=== PATIENT | female | born 1980 | race Caucasian/White ===

== ENCOUNTER 2025-01-26 19:55 | Observation (INO) ==
[2025-01-26] MEDS ORDERED: IOPAMIDOL 100 ML BOTTLE IV ONE (19:56)
[2025-01-26 20:28] LABS: Basophils # (Auto) 0.04 K/mcL (0.00-0.30); Basophils % (Auto) 0.3 % (0.0-2.0); Eosinophils # (Auto) 0.18 K/mcL (0.00-0.70); Eosinophils % (Auto) 1.6 % (0.0-7.0); Hemoglobin 12.7 g/dL (11.2-15.7); Lymphocytes # (Auto) 1.69 K/mcL (1.50-4.80); Lymphocytes % (Auto) 14.6 % (15.5-49.0); Mean Cell Volume 90.5 fL (80.0-100.0); Mean Corpuscular HGB Conc 32.6 g/dL (31.0-36.0); Monocytes # (Auto) 0.73 K/mcL (0.10-0.90); Monocytes % (Auto) 6.3 % (1.0-12.0); Platelet Count 321 K/mcL (140-440); RBC 4.31 M/mcL (3.59-5.38); Red Cell Distribution Width 12.7 % (11.5-14.5); WBC 11.6 K/mcL (4.5-11.0)
[2025-01-26 20:38] LABS: HCG,Serum Negative
[2025-01-26 20:49] LABS: ALT/SGPT 26 U/L (<40); AST/SGOT 23 U/L (<32); Albumin 4.3 gm/dL (3.2-5.2); Albumin/Globulin Ratio 1.8 (1.0-2.3); Alkaline Phosphatase 87 U/L (39-117); Bilirubin,Total 0.3 mg/dL (0.1-1.0); Blood Urea Nitrogen 8 mg/dL (6-20); Calcium 9.4 mg/dL (8.6-10.4); Carbon Dioxide 26 mmol/L (22-30); Chloride 102 mmol/L (96-108); Globulin 2.4 gm/dL (2.2-3.7); Glomerular Filtration Rate 112; Glucose 107 mg/dL (70-105); Potassium 3.8 mmol/L (3.3-5.1); Sodium 140 mmol/L (133-145)
[2025-01-26] MEDS: KETOROLAC 15 MG/ML VIAL IV ONE ×2 (21:15→22:58)
[2025-01-26] MEDS: ONDANSETRON 4 MG/2 ML VIAL IV ONE (21:15)
[2025-01-26 22:23] LABS: Appearance,Urine Clear (Clear); Bacteria,Urine Few /hpf (0); Bilirubin,Urine Negative (Negative); Color,Urine Yellow; Glucose,Urine (UA) Negative (Negative); Ketones,Urine Trace mg/dL (Negative); Leukocyte Esterase,Urine Negative /uL (Negative); Mucus,Urine Many /hpf; Nitrate,Urine Negative (Negative); Protein,Urine Negative (Negative); Specific Gravity,Urine 1.025 (1.000-1.035); Urine Blood Negative ery/mcL (Negative); Urine RBC < 1 /hpf (0-3); Urine Squamous Epithelial Cell 2 /hpf (0-4); Urine WBC 2 /hpf (0-4); Urobilinogen,Urine Normal
[2025-01-27] MEDS: cefOXitin 2 GM VIAL IV ONE (02:20)
[2025-01-27 05:09] LABS: Basophils # (Auto) 0.03 K/mcL (0.00-0.30); Basophils % (Auto) 0.3 % (0.0-2.0); Eosinophils # (Auto) 0.06 K/mcL (0.00-0.70); Eosinophils % (Auto) 0.5 % (0.0-7.0); Hematocrit 35.3 % (34.1-44.9); Hemoglobin 11.9 g/dL (11.2-15.7); Lymphocytes # (Auto) 1.51 K/mcL (1.50-4.80); Mean Cell Volume 89.6 fL (80.0-100.0); Mean Corpuscular HGB Conc 33.7 g/dL (31.0-36.0); Mean Platelet Volume 8.9 fL (8.8-12.5); Monocytes # (Auto) 0.81 K/mcL (0.10-0.90); Monocytes % (Auto) 6.9 % (1.0-12.0); Neutrophils % (Auto) 79.2 % (38.0-78.0); Platelet Count 286 K/mcL (140-440); RBC 3.94 M/mcL (3.59-5.38); Red Cell Distribution Width 12.8 % (11.5-14.5); WBC 11.7 K/mcL (4.5-11.0)
[2025-01-27] MEDS: ACETAMINOPHEN 1,000 MG/100 ML BAG IV ONE ×2 (05:14→13:19)
[2025-01-27] MEDS: fentaNYL 100 MCG/2 ML VIAL IV ONE ×2 (05:15→16:22)
[2025-01-27 05:41] LABS: ALT/SGPT 25 U/L (<40); AST/SGOT 20 U/L (<32); Albumin 4.1 gm/dL (3.2-5.2); Albumin/Globulin Ratio 1.7 (1.0-2.3); Alkaline Phosphatase 83 U/L (39-117); Bilirubin,Total 0.7 mg/dL (0.1-1.0); Blood Urea Nitrogen 8 mg/dL (6-20); Calcium 9.3 mg/dL (8.6-10.4); Carbon Dioxide 25 mmol/L (22-30); Chloride 104 mmol/L (96-108); Globulin 2.4 gm/dL (2.2-3.7); Glomerular Filtration Rate 119; Glucose 100 mg/dL (70-105); Potassium 3.7 mmol/L (3.3-5.1); Sodium 140 mmol/L (133-145)
[2025-01-27] MEDS: HYDROmorphone 0.5 MG/0.5 ML SYRINGE IV ONE (09:15)
[2025-01-27] MEDS ORDERED: MIDAZOLAM 2 MG/2 ML VIAL ONE ×2 (10:26→11:08)
[2025-01-27] MEDS ORDERED: PROPOFOL 200 MG/20 ML VIAL IV ONE ×3 (10:26→12:07)
[2025-01-27] MEDS ORDERED: KETAMINE 50 MG/ML ML ONE (10:27)
[2025-01-27] MEDS ORDERED: ONDANSETRON 4 MG/2 ML VIAL ONE (10:37)
[2025-01-27] MEDS ORDERED: ePHEDrine 50 MG/ML AMPUL IV ONE (10:37)
[2025-01-27] MEDS ORDERED: GLYCOPYRROLATE 0.2 MG/ML VIAL IV ONE (10:37)
[2025-01-27] MEDS ORDERED: PHENYLephrine 1 MG/10 ML SYRINGE (ANEST) ONE (10:37)
[2025-01-27] MEDS ORDERED: ROCURONIUM 10 MG/ML ML IV ONE (10:37)
[2025-01-27] MEDS ORDERED: TRANEXAMIC ACID 1,000 MG/10 ML VIAL ONE (10:37)
[2025-01-27] MEDS ORDERED: LIDOCAINE 2% PF 5 ML VIAL ONE (10:37)
[2025-01-27] MEDS ORDERED: DEXAMETHASONE 10 MG/ML VIAL ONE (10:37)
[2025-01-27] MEDS ORDERED: FAMOTIDINE/PF 20 MG/2 ML VIAL IV ONE ×2 (10:38→13:03)
[2025-01-27] MEDS ORDERED: METOCLOPRAMIDE 10 MG/2 ML VIAL ONE (10:38)
[2025-01-27] MEDS: SCOPOLAMINE 1 PATCH PATCH TOPICAL ONE (11:08)
[2025-01-27] MEDS: ceFAZolin 2 GM in DEXTROSE 5% IN WATER 50 ML IV SCH (11:30)
[2025-01-27] MEDS ORDERED: IPRATROPIUM/ALBUTEROL 3 ML AMPUL.NEB NEB PRN (12:24)
[2025-01-27] MEDS ORDERED: DROPERIDOL 5 MG/2 ML VIAL IV PRN (12:24)
[2025-01-27] MEDS ORDERED: HYDROmorphone 0.5 MG/0.5 ML SYRINGE ONE ×2 (12:28→12:40)
[2025-01-27] MEDS: BUPIVACAINE W/EPI 0.25% 50 ML VIAL IJ ONE (13:00)
[2025-01-27] MEDS ORDERED: SUGAMMADEX SODIUM 200 MG/2 ML VIAL IV ONE (13:02)
[2025-01-27] MEDS: HYDROmorphone 0.5 MG/0.5 ML SYRINGE IV PRN ×2 (13:27→15:15)
[2025-01-27] MEDS ORDERED: HYDROcodone/APAP 5/325MG TABLET PO PRN (14:05)
[2025-01-27] MEDS ORDERED: DEXTROSE 5%-LR 1,000 ML IV SCH (14:15)
[2025-01-27] MEDS: DEXTROSE 5%-1/2NS 1,000 ML IV SCH (15:16)
[2025-01-27] MEDS: CIPROFLOXACIN 400 MG/200 ML BAG IV SCH (15:20)
[2025-01-27] MEDS: LACTATED RINGERS 1,000 ML IV SCH (15:21)
[2025-01-27] MEDS: HYDROcodone/APAP 5/325MG TABLET PO PRN (16:12)
[2025-01-27] MEDS: ONDANSETRON 4 MG/2 ML VIAL IV PRN (16:12)
[2025-01-27] MEDS: ONDANSETRON 4 MG/2 ML VIAL IV ONE (16:21)
[2025-01-27] MEDS: metroNIDAZOLE 500 MG/100 ML BAG IV SCH (16:51)
[2025-01-27] MEDS: ACETAMINOPHEN 650 MG/65 ML BAG IV PRN (19:38)
[2025-01-28 05:58] LABS: Hematocrit 35.4 % (34.1-44.9); Hemoglobin 11.8 g/dL (11.2-15.7); Mean Cell Volume 88.7 fL (80.0-100.0); Mean Corpuscular HGB Conc 33.3 g/dL (31.0-36.0); Mean Platelet Volume 9.3 fL (8.8-12.5); Platelet Count 331 K/mcL (140-440); RBC 3.99 M/mcL (3.59-5.38); Red Cell Distribution Width 12.7 % (11.5-14.5); WBC 10.5 K/mcL (4.5-11.0)
[2025-01-28 06:20] LABS: Blood Urea Nitrogen 6 mg/dL (6-20); Calcium 8.9 mg/dL (8.6-10.4); Carbon Dioxide 23 mmol/L (22-30); Chloride 101 mmol/L (96-108); Glomerular Filtration Rate 112; Glucose 118 mg/dL (70-105); Potassium 3.8 mmol/L (3.3-5.1); Sodium 136 mmol/L (133-145)
[2025-01-28] MEDS: CIPROFLOXACIN 400 MG/200 ML BAG IV SCH (09:10)
[2025-01-28] MEDS: HYDROcodone/APAP 5/325MG TABLET PO PRN (11:04)
[2025-01-28] MEDS: BISACODYL 5 MG TABLET PO SCH (17:09)
[2025-01-28] MEDS: DEXTROSE 5%-1/2NS 1,000 ML IV SCH (17:10)
[2025-01-28] MEDS: CALCIUM CARBONATE 500 MG TAB.CHEW CHEWED PRN (22:44)
[2025-01-29 06:01] LABS: Hematocrit 33.8 % (34.1-44.9); Hemoglobin 11.1 g/dL (11.2-15.7); Mean Cell Volume 90.4 fL (80.0-100.0); Mean Corpuscular HGB Conc 32.8 g/dL (31.0-36.0); Mean Platelet Volume 9.1 fL (8.8-12.5); Platelet Count 288 K/mcL (140-440); RBC 3.74 M/mcL (3.59-5.38); WBC 8.3 K/mcL (4.5-11.0)
[2025-01-29 06:23] LABS: Blood Urea Nitrogen 4 mg/dL (6-20); Calcium 8.6 mg/dL (8.6-10.4); Carbon Dioxide 25 mmol/L (22-30); Chloride 102 mmol/L (96-108); Glomerular Filtration Rate 112; Glucose 91 mg/dL (70-105); Potassium 3.3 mmol/L (3.3-5.1); Sodium 137 mmol/L (133-145)
== END 2025-01-29 15:42 | disposition home or self-care (01) ==
LOC: ED 19:55 → MEDSUR 01-27 10:08 → SUR 01-27 10:08 → MEDSUR 01-27 13:55
PROVIDERS: ADMIT Surgery Surgical Critical Care; ATTEND Family Medicine Adult Medicine
PROC: LAPAPPY (ICD-10-PCS; 2025-01-27 11:31)